=== PATIENT | male | born 1990 | race Caucasian/White ===

== ENCOUNTER 2024-12-17 18:09 | Emergency (ER) | payer SELFPAY ==
[2024-12-17 18:22] VITALS: BP 125/79; PULSE 110
== END 2024-12-17 19:33 | disposition home or self-care (01) ==
LOC: MW.ED 18:09
DX: S50.12XA Contusion of left forearm, initial encounter (principal); S00.83XA Contusion of other part of head, initial encounter; F17.210 Nicotine dependence, cigarettes, uncomplicated; Z79.899 Other long term (current) drug therapy; V86.56XA Driver of dirt bike or motor/cross bike injured in nontraffic accident, initial encounter; Y93.55 Activity, bike riding
CPT/HCPCS: 99282; 99283